=== PATIENT | female | born 1980 | race Caucasian/White ===

== ENCOUNTER 2024-01-07 20:54 | Emergency (ER) | payer OTHER, SELFPAY ==
[2024-01-07] VITALS (11 sets, daily range): BP systolic 89; BP diastolic 59; PULSE 67–77; TEMP 36.6; O2SAT 98; BMI 25.8
--- NOTE | 2024-01-07 22:27 | ED_ITS ---
HPI HPI - General Adult General Chief complaint: Abdominal Pain Stated complaint: TENDER LIVER AREA, WRAPS AROUND BACK Time Seen by Provider: 01/07/24 21:41 Source: patient Mode of arrival: legends Limitations: no limitations History of Present Illness HPI narrative: patient is an alcoholic. Presently in rehab for past 5 days. Last drink about 5 days ago. History of Cirrhosis and ascites and has required paracentesis but none in past 2-3 years. Also past lower ext swelling but none currently . States she has not been able to keep much down over past 4-5 days and has little intake. States she requested to come to the hospital from rehab because of her vomiting. States she is always jaundiced. She was removed from liver transplant list because she would not stop drinking Related Data Home Medications ?Medication ?Instructions ?Recorded ?Confirmed acamprosate 333 mg tablet,delayed 666 mg PO Q8H 01/07/24 01/07/24 release aripiprazole 5 mg tablet 5 mg PO QDAY 01/07/24 01/07/24 cholecalciferol (vitamin D3) 50 50 mcg PO QDAY 01/07/24 01/07/24 mcg (2,000 unit) tablet folic acid 1 mg tablet 1 mg PO QDAY 01/07/24 01/07/24 furosemide 20 mg tablet 20 mg PO QDAY 01/07/24 01/07/24 gabapentin 100 mg capsule 200 mg PO Q8H 01/07/24 01/07/24 hydroxyzine HCl 50 mg tablet 50 mg PO Q8H PRN anxiety 01/07/24 01/07/24 lactulose 10 gram/15 mL oral 30 ml PO TID 01/07/24 01/07/24 solution melatonin 3 mg tablet 6 mg PO .qhs 01/07/24 01/07/24 multivitamin with folic acid 400 tab PO 01/07/24 mcg tablet (Daily-Ghassan (with folic acid)) ondansetron 4 mg disintegrating 4 mg PO Q8H PRN nausea and vomiting 01/07/24 01/07/24 tablet spironolactone 50 mg tablet 50 mg PO QDAY 01/07/24 01/07/24 thiamine HCl (vitamin B1) 100 mg 100 mg PO QDAY 01/07/24 01/07/24 tablet trazodone 50 mg tablet 50 mg PO .qhs 01/07/24 01/07/24 Allergies Allergy/AdvReac Type Severity Reaction Status Date / Time No Known Drug Allergies Allergy Verified 01/07/24 21:12 Opioid HPI Opioid Management Most Recent Opioid Data: Last Pain Scale 4 01/07/24 22:35 Review of Systems ROS Status of ROS 10 or more systems reviewed and unremark able except as noted in history and below Exam Constitutional Vital Signs, click to edit/add: Last Vital Signs Temp 97.9 F 01/07/24 21:13 Pulse 69 01/08/24 04:30 Resp 24 H 01/07/24 22:30 BP 89/59 01/07/24 21:13 Pulse Ox 98 01/07/24 21:13 O2 Del Method Room Air 01/07/24 21:13 Common normals: no apparent distress, average body habitus, oriented x3, no limitations, healthy appearing, alert and well nourished Eye Common normals: EOMs intact bilaterally Other: mild juandice Respiratory Common normals: normal respiratory effort, no retractions, no use of accessory muscles and clear to auscultation bilaterally Cardio Common normals: regular rate, regular rhythm, S1 normal heart sound and S2 normal heart sound GI Common normals: Normal to inspection, nondistended, normoactive bowel sounds present and soft to palpation Other: mild RUQ tenderness Extremity Common normals: normal to inspection and full ROM Neuro Common normals: oriented x3, CN's II-XII intact bilaterally, moves all extremities and no focal motor deficits Psych Appearance: grossly normal Course Vital Signs Vital signs: Vital Signs Temperature 97.9 F 01/07/24 21:13 Pulse Rate 77 01/07/24 21:13 Respiratory Rate 14 01/07/24 21:13 Blood Pressure 89/59 01/07/24 21:13 Pulse Oximetry 98 01/07/24 21:13 Oxygen Delivery Method Room Air 01/07/24 21:13 Temperature 97.9 F 01/07/24 21:13 Pulse Rate 69 01/08/24 04:30 Respiratory Rate 24 H 01/07/24 22:30 Blood Pressure 89/59 01/07/24 21:13 Pulse Oximetry 98 01/07/24 21:13 Oxygen Delivery Method Room Air 01/07/24 21:13 Medical Decision Making MDM Narrative Medical decision making narrative: alcoholic presents from Rehab complaining of decrease intake and vomiting. No vomiting or nausea while here. Known cirrhosis and is on lactulose for elevated ammonia. labs reveal mild elevation of liver enzymes. Found to have hypokalemia that was supplemented. Discharged with a prescription for potassium and zofran Lab Data Labs: Lab Results 01/07/24 01/07/24 01/08/24 Range/Units 22:34 22:41 00:20 WBC 8.0 (4.0-11.0) 10^3/uL RBC 3.07 L (4.20-5.40) 10^6/uL Hgb 10.4 L (12.0-16.0) g/dL Hct 30.4 L (36.0-48.0) % MCV 99.0 (81.0-99.0) fL MCH 33.9 (26.7-34.0) pg MCHC 34.2 (29.9-35.2) g/dL RDW 18.7 H (11.0-15.0) % Plt Count 160 (150-450) 10^3/uL MPV 10.3 (9.5-13.5) fL Neut % (Auto) 60.6 (43.0-75.0) % Lymph % (Auto) 29.4 (20.5-60.0) % [place] % (Auto) 7.9 (1.7-12.0) % Eos % (Auto) 1.5 (0.9-7.0) % Baso % (Auto) 0.3 (0.2-2.0) % Neut # (Auto) 4.8 (1.4-6.5) 10^3/uL Lymph # (Auto) 2.3 (1.2-3.8) 10^3/uL [place] # (Auto) 0.6 (0.3-0.8) 10^3/uL Eos # (Auto) 0.1 (0.0-0.7) 10^3/uL Baso # (Auto) 0.0 (0.0-0.1) 10^3/uL Abs Immat Gran (auto) 0.02 (0.00-0.03) 10^3/uL Imm/Tot Granulo (auto) 0.3 (0.0-0.5) % Sodium 135 L (136-145) mmol/L Potassium 2.8 L* (3.5-5.1) mmol/L Chloride 97 L (98-107) mmol/L Carbon Dioxide 26.1 (21.0-32.0) mmol/L Anion Gap 14.7 BUN 5.0 L (7.0-18.0) mg/dL Creatinine 0.80 (0.55-1.02) mg/dL Est GFR ( Amer) >60 (>=60) Est GFR (Non-Af Amer) >60 (>=60) BUN/Creatinine Ratio 6.3 Glucose 89 (74-106) mg/dL Calcium 8.7 (8.5-10.1) mg/dL Total Bilirubin 3.7 H (0.2-1.0) mg/dL AST 158 H (15-37) U/L ALT 53 (14-59) U/L Alkaline Phosphatase 195 H (46-116) U/L Ammonia 54 H* (11-32) umol/L Total Protein 7.1 (6.4-8.2) g/dL Albumin 3.1 L (3.4-5.0) g/dL Globulin 4.0 g/dL Albumin/Globulin Ratio 0.8 Urine Color Yellow (YELLOW) Urine Clarity Clear (CLEAR) Urine pH 6.0 (5.0-9.0) Ur Specific [place] <=1.005 A (1.005-1.025) Urine Protein Negative (NEG/TRACE) mg/dL Urine Glucose (UA) Negative (NEGATIVE) mg/dL Urine Ketones Negative (NEGATIVE) mg/dL Urine Occult Blood Trace-i (NEGATIVE) Urine Nitrite Negative (NEGATIVE) Urine Bilirubin Negative (NEGATIVE) Urine Urobilinogen 1.0 (0.2-1.0) EU/dL Ur Leukocyte Esterase Negative (NEGATIVE) Urine RBC 0-2 (0-2) #/HPF Urine WBC None seen (NONE SEEN) #/HPF Ur Squamous Epith Cells Rare (NONE/RARE) #/LPF Urine Crystals None seen (None Seen) #/HPF Urine Bacteria None seen (NONE SEEN) #/HPF Urine Casts None seen (NONE SEEN) #/LPF Urine Mucus None seen (NONE SEEN) Ur Culture Indicated? No Discharge Plan Discharge Stand Alone Forms: Portal Instructions Chief Complaint: Abdominal Pain Clinical Impression: Alcoholic, Hyperammonemia, Hypokalemia Patient Disposition: Home, Self-Care Mode of Transportation: Private Vehicle Prescriptions / Home Meds: No Action gabapentin 100 mg capsule 200 mg PO Q8H acamprosate 333 mg tablet,delayed release (DR/EC) 666 mg PO Q8H aripiprazole 5 mg tablet 5 mg PO QDAY cholecalciferol (vitamin D3) 50 mcg (2,000 unit) tablet 50 mcg PO QDAY folic acid 1 mg tablet 1 mg PO QDAY furosemide 20 mg tablet 20 mg PO QDAY hydroxyzine HCl 50 mg tablet 50 mg PO Q8H PRN (Reason: anxiety) lactulose 10 gram/15 mL solution 30 ml PO TID melatonin 3 mg tablet 6 mg PO .qhs ondansetron 4 mg tablet,disintegrating 4 mg PO Q8H PRN (Reason: nausea and vomiting) multivitamin with folic acid [Daily-Ghassan (with folic acid)] 400 mcg tablet PO spironolactone 50 mg tablet 50 mg PO QDAY thiamine HCl (vitamin B1) 100 mg tablet 100 mg PO QDAY trazodone 50 mg tablet 50 mg PO .qhs Print Language: Taiwanese Instructions: Hypokalemia (ED), Alcohol Dependence (ED) Additional Instructions: important to take your lactulose. need to have your potassium level rechecked in 2-4 days Referrals: Physician,Non-Staff, MD [Primary Care Provider] - 1 week
--- NOTE | 2024-01-07 22:29 | ECG_ITS ---
[facility] Test Date: 2024-01-07 Pat Name: OCTAVIO GRULLON Department: Room: - Gender: Female [employer]: : [id number] Requested By: [id number] Order Number: [id number] Reading MD: ALEJANDRO HAMMOND Measurements Intervals [place] Rate: 67 P: 46 CT: 168 QRS: 52 QRSD: 82 T: -10 QT: 426 QTc: 442 Interpretive Statements 1100 Sinus rhythm 4068 Nonspecific [place] abnormality 9130 borderline ECG No previous ECG available for comparison Electronically Signed On 01-08-2024 11:03:22 EDT by ALEJANDRO HAMMOND
[2024-01-07 22:48] LABS: Basophils Percent Auto 0.3 % (0.2-2.0); Eosinophils Absolute Auto 0.1 10^3/uL (0.0-0.7); Eosinophils Percent Auto 1.5 % (0.9-7.0); Hematocrit 30.4 % (36.0-48.0); Hemoglobin 10.4 g/dL (12.0-16.0); Immature Granulocytes Abs Auto 0.02 10^3/uL (0.00-0.03); Immature Granulocytes Pct Auto 0.3 % (0.0-0.5); Lymphocytes Absolute Auto 2.3 10^3/uL (1.2-3.8); Lymphocytes Percent Auto 29.4 % (20.5-60.0); Mean Corpuscular HGB Conc 34.2 g/dL (29.9-35.2); Mean Corpuscular Hemoglobin 33.9 pg (26.7-34.0); Mean Platelet Volume 10.3 fL (9.5-13.5); Monocytes Absolute Auto 0.6 10^3/uL (0.3-0.8); Monocytes Percent Auto 7.9 % (1.7-12.0); Neutrophils Absolute Auto 4.8 10^3/uL (1.4-6.5); Neutrophils Percent Auto 60.6 % (43.0-75.0); Platelet Count 160 10^3/uL (150-450); Red Blood Count 3.07 10^6/uL (4.20-5.40); Red Cell Distribution Width 18.7 % (11.0-15.0)
[2024-01-07 23:04] LABS: Alanine Aminotransferase 53 U/L (14-59); Albumin Globulin Ratio 0.8; Albumin Level 3.1 g/dL (3.4-5.0); Alkaline Phosphatase 195 U/L (46-116); Anion Gap 14.7; Aspartate Amino Transferase 158 U/L (15-37); BUN Creatinine Ratio 6.3; Bilirubin Total 3.7 mg/dL (0.2-1.0); Calcium 8.7 mg/dL (8.5-10.1); Carbon Dioxide 26.1 mmol/L (21.0-32.0); Chloride 97 mmol/L (98-107); Estimated GFR (African America >60 (>=60); Estimated GFR (Non-African Ame >60 (>=60); Glucose 89 mg/dL (74-106); Sodium 135 mmol/L (136-145); Total Protein 7.1 g/dL (6.4-8.2)
[2024-01-07 23:06] LABS: Ammonia 54 umol/L (11-32)
[2024-01-07 23:06] LABS: Potassium 2.8 mmol/L (3.5-5.1)
[2024-01-08] VITALS (31 sets, daily range): BP systolic 103; BP diastolic 77; PULSE 68–81; O2SAT 98
[2024-01-08] MEDS: POTASSIUM CHLORIDE IN WATER 10 MEQ/100 ML PIGGYBACK 100 MEQ IV ×4 (00:15→03:31)
[2024-01-08 00:42] LABS: Bilirubin Urine NEGATIVE (NEGATIVE); Blood Urine TRACE-I (NEGATIVE); Clarity Urine CLEAR (CLEAR); Color Urine YELLOW (YELLOW); Glucose Urine UA NEGATIVE (NEGATIVE); Ketones Urine NEGATIVE (NEGATIVE); Leukocyte Esterase Urine NEGATIVE (NEGATIVE); Nitrite Urine NEGATIVE (NEGATIVE); Protein Urine NEGATIVE (NEG/TRACE); Specific Gravity Urine <=1.005 (1.005-1.025)
[2024-01-08 00:43] LABS: Urine Microscopic Indicated YES
[2024-01-08 00:55] LABS: Bacteria Urine NONE SEEN #/HPF (NONE SEEN); Cast Seen? NONE SEEN #/LPF (NONE SEEN); Crystals Seen? None Seen #/HPF (None Seen); Mucus Urine NONE SEEN (NONE SEEN); RBC Urine 0-2 #/HPF (0-2); Squamous Epithelial Cell Urine RARE #/LPF (NONE/RARE); Urine Culture Indicated NO; WBC Urine NONE SEEN #/HPF (NONE SEEN)
== END 2024-01-08 04:57 | disposition home or self-care (01) ==
PROVIDERS: Emergency Provider Internal Medicine
DX: E72.20 Disorder of urea cycle metabolism, unspecified (principal); E87.6 Hypokalemia; F10.20 Alcohol dependence, uncomplicated; K74.60 Unspecified cirrhosis of liver; Z79.899 Other long term (current) drug therapy
CPT/HCPCS: 36415; 80053; 81001; 82140; 85025; 93005; 96365; 96366; 99284